=== PATIENT | female | born 1995 | race Caucasian/White ===

== ENCOUNTER → 2016-10-09 | Outpatient (CLI) | payer OTHER ==
[~2016-10-09] MED LIST: LISI-360 PO; LISI10TA3 PO; OXYB5TAB10 PO; OXYB5TAB33 PO
[2016-10-09 15:58] LABS: HEMATOCRIT 39.1 % (35.0-46.0); MEAN CORPUSCULAR HEMOGLOBIN 30.5 PG (27.0-34.0); MEAN CORPUSCULAR HGB CONC 34.7 % (32.0-36.0); PLATELET COUNT 318 TH/MM3 (150-450); RED BLOOD COUNT 4.44 MIL/MM3 (4.00-5.30); RED CELL DISTRIBUTION WIDTH 12.6 % (11.6-17.2); REVIEW FLAG FINAL; WHITE BLOOD COUNT 7.3 TH/MM3 (4.0-11.0)
[2016-10-09 16:50] LABS: ALKALINE PHOSPHATASE 83 U/L (45-117); ALT (GPT) 35 U/L (9-42); ANION GAP 7 MEQ/L (5-15); AST (GOT) 16 U/L (16-38); BICARBONATE 24.6 MEQ/L (21.0-32.0); BLOOD UREA NITROGEN 11 MG/DL (7-18); CHLORIDE 107 MEQ/L (98-107); GLOMERULAR FILTRATION RATE 126 ML/MIN (>89); SODIUM (NA) 139 MEQ/L (136-145); TOTAL BILIRUBIN ADULT 0.3 MG/DL (0.2-1.0)
== END ==
LOC: PLAB 11:12
DX: N31.9 Neuromuscular dysfunction of bladder, unspecified (principal)
CPT/HCPCS: 80053; 82570; 84156; 85027

== ENCOUNTER 2016-10-20 15:54 | Emergency (ER) | payer OTHER ==
[~2016-10-20] VITALS: Ht 160 cm; Wt 60.0 kg
[~2016-10-20 15:54] MED LIST changes: -LISI10TA3 PO; -OXYB5TAB10 PO
[2016-10-20 16:04] VITALS: BP 134/94; PULSE 123; RESP 16; TEMP 98.7; O2SAT 98
[2016-10-20] MEDS ORDERED: OXYB5TAB10 PO (16:27)
[2016-10-20] MEDS ORDERED: LISI10TA3 PO (16:27)
--- NOTE | 2016-10-20 16:49 | PD ---
HPI Chief Complaint: Musculoskeletal Complaint Time Seen by Provider: 16:28 Travel History International Travel<30 days: No Contact w/Intl Traveler<30days: No Traveled to known affect area: No History of Present Illness HPI Patient is a 20-year-old female with history of spina bifida who presents the emergency department with complaint of right foot pain. Yesterday patient had a mechanical fall,, rotating her right foot. Patient complains of pain to the lateral aspect of the right foot that radiates up the right lateral leg. Due to her spina bifida patient states that she has poor sensation to the foot anyways, and the pain is mild she has not taken anything for it. She has not noticed any change in sensation. [facility]LY [facility] Past Medical History Diminished Hearing: No Genitourinary: Yes (renal scarring) Hypertension: Yes Neurologic: Yes (SPINA BIFIDA LEVEL L4 L5) Immunizations Current: Yes Tetanus Vaccination: < 5 Years Influenza Vaccination: No ?: Not LMP: LAST MONTH Past Surgical History Appendectomy: Yes (bladder stoma) Genitourinary Surgery: Yes (BLADDER AUGMENTATION) Neurologic Surgery: Yes (SPINAL CLOSURE OF SPINA BIFIDA AGE 1 DAY) Other Surgery: Yes (DOMENICA PROCEURE FOR BOWEL) Social History Alcohol Use: No Tobacco Use: No Substance Use: No Allergies-Medications (Allergen,Severity, Reaction): Coded Allergies: Latex (Verified Allergy, Severe, 10/20/16) Reported Meds & Prescriptions Reported Meds & Active Scripts Active Reported Lisinopril 10 Mg Tab 10 Mg PO BID Ditropan (Oxybutynin Chloride) 5 Mg Tab 5 Mg PO Q12HR Review of Systems Except as stated in HPI: all other systems reviewed are Neg Physical Exam Narrative GENERAL: Well-appearing female in no acute distress SKIN: Warm and dry. HEAD: Normocephalic. EYES: No scleral icterus. No injection or drainage. ENT: Mucous membranes pink and moist. NECK: Supple CARDIOVASCULAR: Regular rate and rhythm. RESPIRATORY: No accessory muscle use. MUSCULOSKELETAL: Tenderness to palpation over the head of the fifth metatarsal. Patient has slight tenderness to palpation over the lateral tibial plateau and head of the fibula. Range of motion is intact, no gross deformity, swelling or ecchymosis. Distal sensation is decreased in a stocking-like pattern, chronic per patient. Distal pulses intact. NEUROLOGICAL: Awake and alert. Normal speech. PSYCHIATRIC: Appropriate mood and affect; insight and judgment normal. Data Data Last Documented VS Vital Signs Date Time Temp Pulse Resp B/P Pulse Ox O2 Delivery O2 Flow Rate FiO2 10/20/16 16:04 98.7 123 16 134/94 98 Orders Foot, Complete (Dcn2irx) (10/20/16 ) Knee, Complete (4vws) (10/20/16 ) MDM Medical Decision Making Medical Screen Exam Complete: Yes Emergency Medical Condition: Yes Medical Record Reviewed: Yes Differential Diagnosis 20-year-old female with history of spina bifida here with right lateral foot pain and reproducible right lateral knee pain/fibular head pain on exam after mechanical fall yesterday. Differential includes foot fracture, sprain neck, contusion, there head fracture, tibial plateau fracture, contusion. Narrative Course X-rays of the right foot and knee were obtained showing congenital abnormalities but no acute changes. Diagnosis Primary Impression: Right foot sprain Qualified Code: S93.601A - Right foot sprain, initial encounter Referrals: Primary Care Physician as needed Additional Instructions: Tylenol, ibuprofen as needed for pain. Follow-up with primary care provider symptoms persist and return to the ER for the warning signs discussed. Med/Other Pt SpecificInfo: No Change to Meds Disposition: 01 DISCHARGE HOME Condition: Stable Juhi Rivera MD Oct 20, 2016 16:49
--- NOTE | 2016-10-20 17:41 | RADHPO ---
EXAM DATE/TIME: 10/20/2016 17:20 [facility] COMPARISON: No previous studies available for comparison. INDICATIONS : Patient states she fell, lateral side pain. MEDICAL HISTORY : None. SURGICAL HISTORY : None. ENCOUNTER: Initial ACUITY: 2 days PAIN SCORE: 4/10 LOCATION: Right Knee FINDINGS: Four view examination of the right knee demonstrates no evidence of fracture or dislocation. Bony mi neralization is normal. The articular surfaces are intact. The suprapatellar soft tissues have a no rmal configuration. CONCLUSION: Negative examination Jono Carson MD on October 20, 2016 at 17:39 Board Certified Radiologist. This report was verified electronically.
--- NOTE | 2016-10-20 17:43 | RADHPO ---
EXAM DATE/TIME: 10/20/2016 17:22 [facility] COMPARISON: KNEE RIGHT COMPLETE (4VWS), October 20, 2016, 17:20. HIP RIGHT (AP & LAT), September 14, 2013, 9:44. INDICATIONS : Patient states she fell, pain. MEDICAL HISTORY : None. SURGICAL HISTORY : Club foot repair ENCOUNTER: Initial ACUITY: 2 days PAIN SCORE: 3/10 LOCATION: Right Foot FINDINGS: Dysplasias appreciated with deformity of the calcaneus and possible fusion of the calcaneal talar art iculation. Additionally there is foreshortening of the third and fourth metatarsals. These findings a re congenital. There is no evidence of fracture or dislocation. 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 No acute bony injury. Jono Carson MD on October 20, 2016 at 17:40 Board Certified Radiologist. This report was verified electronically.
== END 2016-10-20 17:58 | disposition home or self-care (01) ==
LOC: PHEFT 15:54
DX: S93.601A Unspecified sprain of right foot, initial encounter (principal); I10 Essential (primary) hypertension; Q05.7 Lumbar spina bifida without hydrocephalus
CPT/HCPCS: 73564; 73630; 99283

== ENCOUNTER → 2017-10-19 | Outpatient (CLI) | payer OTHER ==
[~2017-10-19] MED LIST changes: -LISI-360 PO; +LISI10TA3 PO; -OXYB5TAB33 PO; +OXYB5TAB8 PO
[2017-10-19 12:03] LABS: HEMOGLOBIN 13.4 GM/DL (11.6-15.3); MEAN CELL VOLUME 89.5 FL (80.0-100.0); MEAN CORPUSCULAR HEMOGLOBIN 31.7 PG (27.0-34.0); MEAN CORPUSCULAR HGB CONC 35.4 % (32.0-36.0); PLATELET COUNT 314 TH/MM3 (150-450); RED BLOOD COUNT 4.24 MIL/MM3 (4.00-5.30); RED CELL DISTRIBUTION WIDTH 13.3 % (11.6-17.2); WHITE BLOOD COUNT 6.6 TH/MM3 (4.0-11.0)
[2017-10-19 12:13] LABS: ALBUMIN 4.3 GM/DL (3.4-5.0); ALT (GPT) 26 U/L (9-42); AST (GOT) 16 U/L (16-38); BICARBONATE 25.3 MEQ/L (21.0-32.0); BLOOD UREA NITROGEN 13 MG/DL (7-18); CALCIUM 9.1 MG/DL (8.5-10.1); CHLORIDE 106 MEQ/L (98-107); CREATININE 0.58 MG/DL (0.50-1.00); GLOMERULAR FILTRATION RATE 133 ML/MIN (>89); GLUCOSE,FASTING 81 MG/DL (74-99); SODIUM (NA) 138 MEQ/L (136-145)
[2017-10-19 12:27] LABS: ALKALINE PHOSPHATASE 73 U/L (45-117); CHOLESTEROL 136 MG/DL (120-200); CHOLESTEROL/ HDL RATIO 1.68 RATIO; HDL CHOLESTEROL 80.7 MG/DL (40.0-60.0); LDL CHOLESTEROL 48 MG/DL (0-99); TOTAL BILIRUBIN ADULT 0.4 MG/DL (0.2-1.0); TOTAL PROTEIN 7.7 GM/DL (6.4-8.2); TRIGLYCERIDES 37 MG/DL (42-150)
== END ==
LOC: PLAB 08:43
DX: N31.9 Neuromuscular dysfunction of bladder, unspecified (principal); N28.89 Other specified disorders of kidney and ureter; N39.0 Urinary tract infection, site not specified; Q05.2 Lumbar spina bifida with hydrocephalus
CPT/HCPCS: 36415; 80053; 80061; 82306; 85027